=== PATIENT | female | born 1995 | race Caucasian/White ===

== ENCOUNTER 2017-01-03 14:21 | Outpatient (CLI) | payer SELFPAY ==
[~2017-01-03] VITALS: Ht 162.6 cm; Wt 105.0 kg
[2017-01-03 14:47] VITALS: BP 118/59
[2017-01-03] MEDS ORDERED: PRENTAB9 PO (15:03)
[2017-01-03] MEDS ORDERED: IRON65TA PO (15:03)
--- NOTE | 2017-01-03 18:49 | HPE ---
DATE OF ADMISSION: 01/03/2017 REASON FOR VISIT: labor evaluation. HISTORY OF PRESENT ILLNESS: This patient is a 21-year-old 3, para 2, who presents at 35 weeks 4 days estimated gestational age with an estimated date of confinement of 02/04/2017, with a known dichorionic diamniotic twin gestation. Her course has been otherwise unremarkable. She initiated care in the first trimester that has been appropriate throughout. She presents as an unregistered patient that has been seen in [place] by Dr. Wong. She reports throughout the day that she started to experience some cramping. Denies any full blown contractions, vaginal bleeding or leakage of fluid. She reports active movement. PAST MEDICAL HISTORY: None. PAST SURGICAL HISTORY: None. PAST OBSTETRICAL HISTORY: She is a 3, para 2. She has had two term vaginal deliveries. She is proven to 9 pounds 1 ounce. MEDICATIONS: Includes vitamins. ALLERGIES: She has no known drug allergies. SOCIAL HISTORY: She is a former smoker, quit during her . PHYSICAL EXAMINATION: Her vital signs are stable. She is afebrile. She has a category 1 heart rate tracing times two from twin gestation with irritability, no discrete contractions on tocometer. GENERAL APPEARANCE: Well-appearing. No acute distress. LUNGS: Clear to auscultation bilaterally. CARDIOVASCULAR: Heart regular rate and rhythm. ABDOMEN: Gravid, nontender. CERVICAL: She is 3 cm dilated, 75% effaced, -2 station, unchanged from her previous exam one day ago. LABORATORY DATA: Her blood type is A positive. Antibody screen is negative. Rubella is equivocal. Hepatitis surface antigen is negative. HIV is negative. ASSESSMENT: 1. This patient is a 21-year-old 3, para 2 at 35 weeks 4 days with a twin gestation. 2. Reassuring statuses times two. 3. Stable cervical exam, not in active labor. PLAN: 1. The patient was provided with labor precautions as well as kick count instructions. 2. She is instructed to followup with the primary mastic worker, Dr. Wong.
== END 2017-01-03 16:27 | disposition home or self-care (01) ==
LOC: M LDO 14:21
PROVIDERS: ATTEND Obstetrics & Gynecology
DX: O47.03 False labor before 37 completed weeks of gestation, third trimester (principal); O30.043 Twin pregnancy, dichorionic/diamniotic, third trimester; Z3A.35 35 weeks gestation of pregnancy; Z87.891 Personal history of nicotine dependence

== ENCOUNTER → 2017-01-11 | Outpatient (REF) | payer OTHER ==
[~2017-01-11] MED LIST: ACET50TA PO; IBUP-1114 PO; IRON65TA PO; PRENTAB9 PO
== END ==
LOC: M LAB REF 17:28
PROVIDERS: ATTEND Obstetrics & Gynecology
DX: O30.043 Twin pregnancy, dichorionic/diamniotic, third trimester (principal); Z3A.00 Weeks of gestation of pregnancy not specified

== ENCOUNTER 2017-01-18 13:38 | Inpatient (IN) | payer OTHER ==
[~2017-01-18] VITALS: Ht 162.6 cm; Wt 105.0 kg
[~2017-01-18 13:38] MED LIST changes: -ACET50TA PO; -IBUP-1114 PO
[2017-01-18 13:57] VITALS: BP 122/59
[2017-01-18] MEDS ORDERED: LACTATED RINGER'S 1000 ML IV STA (14:41)
[2017-01-18 15:33] LABS: MEAN CORPUSCULAR HEMOGLOBIN 24.6 pg (27.0-33.0); MEAN CORPUSCULAR VOLUME 74.5 fl (80.0-96.0); RED CELL DISTRIBUTION WIDTH 14.6 % (11.5-14.5); WHITE BLOOD COUNT 14.8 K/mm3 (4.0-10.0)
[2017-01-18] MEDS: LR 1,000 ML IV SCH (16:38)
[2017-01-18 17:01] VITALS: BP 118/66
[2017-01-18 18:48] VITALS: BP 102/55
[2017-01-18 19:27] VITALS: BP 114/56
[2017-01-18 20:58] VITALS: BP 118/57
[2017-01-18 21:48] VITALS: BP 110/55
[2017-01-18] MEDS: ceFAZolin SOD 1 GM in D5W MINI-BAG PLUS 50 ML IV SCH (23:44)
[2017-01-19] VITALS (40 sets, daily range): BP systolic 88–131; BP diastolic 50–81
[2017-01-19] MEDS: ceFAZolin SOD 1 GM in D5W MINI-BAG PLUS 50 ML IV SCH ×2 (09:28→15:10)
[2017-01-19] MEDS: LR 1,000 ML IV SCH (09:35)
[2017-01-19] MEDS ORDERED: FENTANYL 2MCG/ML ROPIVACAINE 0.2% IN 0.9% NACL 200ML IVBAG As Ordered ONE (11:25)
[2017-01-19] MEDS ORDERED: diphenhydrAMINE INJ 50MG/ML VIAL (J1200) IV PRN (12:00)
[2017-01-19] MEDS ORDERED: FENTANYL/ROPIVACAINE/NACL BAG 200 ML EPIDURAL SCH (12:00)
[2017-01-19] MEDS ORDERED: NALOXONE INJ 0.4 MG/1 ML VIAL (J2310) IV PRN (12:00)
[2017-01-19] MEDS ORDERED: EPIDURAL/PCA KEYS XX PRN (12:00)
[2017-01-19] MEDS ORDERED: LACTATED RINGER'S 1000 ML IV PRN (12:00)
[2017-01-19] MEDS ORDERED: EPIDURAL COMMENT XX SCH (12:00)
[2017-01-19] MEDS ORDERED: REFRIGERATOR IV KEYS XX PRN (12:00)
[2017-01-19] MEDS ORDERED: ONDANSETRON 4MG/2ML VIAL (J2405) IV PRN ×2 (12:00→16:00)
[2017-01-19] MEDS ORDERED: OXYTOCIN 30 UNITS IN 0.9% NaCl 500ML IV BAG (J2590) As Ordered ONE (14:34)
[2017-01-19] MEDS ORDERED: LR 1,000 ML IV SCH (15:59)
[2017-01-19] MEDS ORDERED: DIBUCAINE 1% OINTMENT 30GM TOP PRN (16:00)
[2017-01-19] MEDS ORDERED: DOCUSATE SODIUM 100 MG CAP PO PRN (16:00)
[2017-01-19] MEDS ORDERED: METHYLERGONOVINE MALEATE 0.2 MG TAB PO PRN (16:00)
[2017-01-19] MEDS ORDERED: PROMETHAZINE 25 MG TAB PO PRN (16:00)
[2017-01-19] MEDS ORDERED: MEASLES,MUMPS,RUBELLA VACCINE INJ (MMR-II) (90707) SC SCH (16:00)
[2017-01-19] MEDS ORDERED: RHOGAM 300 MCG (1500 IU) INJ (J2790) IM SCH (16:00)
[2017-01-19] MEDS ORDERED: OXYTOCIN DRIP 30 UNITS in APPROPRIATE DILUENT 1 EA IV SCH (16:15)
[2017-01-19] MEDS: IBUPROFEN 800 MG TAB PO PRN (20:35)
[2017-01-20] MEDS: ACETAMINOPHEN 500 MG TAB PO PRN ×2 (04:35→16:29)
[2017-01-20 06:30] VITALS: BP 95/65
[2017-01-20] MEDS: PRENATAL VITAMINS CHEWABLE TABLET PO SCH (08:24)
[2017-01-20] MEDS: IBUPROFEN 800 MG TAB PO PRN ×2 (09:18→22:32)
[2017-01-20 18:05] VITALS: BP 130/64
[2017-01-21] MEDS: ACETAMINOPHEN 500 MG TAB PO PRN (02:23)
[2017-01-21 06:06] VITALS: BP 138/93
[2017-01-21] MEDS ORDERED: ACET50TA PO (07:58)
[2017-01-21] MEDS ORDERED: IBUP-1114 PO (07:58)
[2017-01-21] MEDS: PRENATAL VITAMINS CHEWABLE TABLET PO SCH (08:53)
== END 2017-01-21 10:34 | disposition home or self-care (01) | DRG 560 ==
LOC: M LDI 13:38 → M OBS 01-19 18:26
PROVIDERS: ADMIT Obstetrics & Gynecology; ATTEND Obstetrics & Gynecology
PROC: 10E0XZZ Delivery of Products of Conception, External Approach (ICD-10-PCS; principal; 2017-01-19)
DX: O36.8132 Decreased fetal movements, third trimester, fetus 2 (principal); O30.043 Twin pregnancy, dichorionic/diamniotic, third trimester; Z37.2 Twins, both liveborn; Z3A.37 37 weeks gestation of pregnancy; O99.824 Streptococcus B carrier state complicating childbirth; O69.2XX2 Labor and delivery complicated by other cord entanglement, with compression, fetus 2

== ENCOUNTER → 2019-03-19 | Outpatient (REF) | payer OTHER ==
[~2019-03-19] MED LIST changes: +IBUP-1114 PO; +MAPA500T2 PO
== END ==
LOC: M LAB REF 13:24
PROVIDERS: ATTEND Advanced Practice Midwife
DX: Z12.4 Encounter for screening for malignant neoplasm of cervix (principal)

== ENCOUNTER → 2019-06-17 | Outpatient (CLI) | payer OTHER ==
--- NOTE | 2019-06-17 12:57 | REP ---
OB ULTRASOUND: Real-time sonographic evaluation of the gravid uterus is performed. There is a single living intrauterine gestation. Estimated gestational age 19 weeks 4 days, EDC 11/07/2019. Today's measurements indicate appropriate growth. BPD 42 mm = 18 weeks 4 days, 23rd percentile HC 163 mm = 19 weeks 1 day, 34th percentile AC 148 mm = 20 weeks 0 days, 59th percentile Femur length 33 mm = 20 weeks 1 day, 64th percentile HC/AC ratio 1.11 within normal range. Estimated weight 319 grams, 57th percentile. Cervix is closed and measures 5.5 cm in length. heart rate 137 beats per minute. SEEN/GROSSLY UNREMARKABLE Lateral ventricles Yes Posterior fossa Yes Upper lip No Four-chamber heart Yes LVOT No RVOT No Stomach Yes Cord insertion Yes Three vessel cord Yes Kidneys Yes Bladder Yes Spine Yes position: Transverse with the head toward the maternal right side. Placenta: Posterior and grade 0 with no previa or abruption. Amniotic fluid: Within normal limits. Unreviewed
== END ==
LOC: M RAD 09:24
PROVIDERS: ATTEND Advanced Practice Midwife
DX: Z34.82 Encounter for supervision of other normal pregnancy, second trimester (principal)

== ENCOUNTER → 2019-09-08 | Outpatient (REF) | payer OTHER ==
[2019-09-08 15:29] LABS: CHLAMYDIA DNA AMPLIFICATION NEGATIVE (NEGATIVE); GC DNA AMPLIFICATION NEGATIVE (NEGATIVE)
== END ==
LOC: M SFHCWAGY 12:53
PROVIDERS: ATTEND Nurse Practitioner Women's Health
DX: O99.213 Obesity complicating pregnancy, third trimester (principal); Z3A.31 31 weeks gestation of pregnancy

== ENCOUNTER → 2019-09-15 | Outpatient (CLI) | payer OTHER ==
--- NOTE | 2019-09-16 06:43 | REP ---
Clinical: Anatomical evaluation. Comparison: 06/17/2019 . Findings: Examination demonstrates a single live intrauterine in cephalic presentation. motion is identified by technologist. Placenta is noted posterior and grade I I without evidence for placenta previa or abruption. Amniotic fluid volume is normal. Cervix measures 3.0 cm in length and appears closed. No evidence for nuchal cord. Gestational age by LMP 32 weeks 3 days with AMRITA 11/07/2019 . Gestational age by current measurements 31 weeks 6 days with AMRITA 11/11/2019 . FHR equals 134 beats per minute. Estimated weight 1954 grams ( 42nd percentile). Amniotic fluid index: 14.9 cm. Anatomical assessment demonstrates normal structures including cranium, choroid plexus, facial features, four-chamber heart/ventricular outflow tracts, diaphragm, stomach, cord insertion/three-vessel cord, kidneys/bladder, and spine. Impression: single live intrauterine in cephalic presentation demonstrating appropriate interval growth. In conjunction with prior examination anatomical assessment is complete and normal.
== END ==
LOC: M WHC 10:58
PROVIDERS: ATTEND Obstetrics & Gynecology
DX: O09.292 Supervision of pregnancy with other poor reproductive or obstetric history, second trimester (principal)

== ENCOUNTER → 2019-09-28 | Outpatient (REF) | payer OTHER ==
[2019-09-28 11:53] LABS: HEMATOCRIT 38.1 % (36.0-47.0); HEMOGLOBIN 12.6 g/dl (12.0-15.5); MEAN CORPUSCULAR HEMOGLOBIN 28.3 pg (27.0-33.0); MEAN CORPUSCULAR HGB CONC 33.1 g/dl (32.0-36.5); MEAN CORPUSCULAR VOLUME 85.6 fl (80.0-96.0); PLATELET COUNT, AUTOMATED 223 10^3/uL (150-450); RED BLOOD COUNT 4.45 10^6/uL (4.00-5.40); WHITE BLOOD COUNT 8.9 10^3/uL (4.0-10.0)
[2019-09-28 11:58] LABS: ALT/SGPT 17 U/L (12-78); BILIRUBIN,TOTAL 0.2 MG/DL (0.2-1.0); CREATININE FOR GFR 0.46 MG/DL (0.55-1.30); GLOMERULAR FILTRATION RATE > 60.0 (>60); GLUCOSE CHALLENGE TEST 1 HOUR 129 MG/DL (LESS THAN 140); LDH LACTATE DEHYDROGENASE 117 U/L (84-246); URIC ACID 2.9 MG/DL (2.6-6.0)
[2019-09-28 12:18] LABS: RUBELLA IgG QUALITATIVE IMMUNE (IMMUNE)
[2019-09-28 12:19] LABS: HEPATITIS B SURFACE ANTIGEN NEGATIVE (NEGATIVE)
[2019-09-28 12:20] LABS: TOTAL PROTEIN,RANDOM URINE 27.8 MG/DL (0.0-12.0)
[2019-09-28 12:29] LABS: HEMOGLOBIN A1c 5.4 %
[2019-09-28 12:47] LABS: HEPATITIS C VIRUS ABY INDEX 0.2 INDEX (<0.8); HIV 1&2 SCREEN CENTAUR NEGATIVE (NEGATIVE)
[2019-09-28 14:34] LABS: CHLAMYDIA DNA AMPLIFICATION NEGATIVE (NEGATIVE); GC DNA AMPLIFICATION NEGATIVE (NEGATIVE)
== END ==
LOC: M PLALAB 09:24
PROVIDERS: ATTEND Nurse Practitioner Women's Health
DX: Z3A.31 31 weeks gestation of pregnancy (principal); O99.213 Obesity complicating pregnancy, third trimester; O09.293 Supervision of pregnancy with other poor reproductive or obstetric history, third trimester

== ENCOUNTER → 2019-10-09 | Outpatient (REF) | payer OTHER | LOC: M PLALAB 10:08 | PROVIDERS: ATTEND Obstetrics & Gynecology | DX: O09.293 Supervision of pregnancy with other poor reproductive or obstetric history, third trimester (principal); Z3A.00 Weeks of gestation of pregnancy not specified ==

== ENCOUNTER 2019-10-17 12:13 | Outpatient (CLI) | payer OTHER ==
[~2019-10-17] VITALS: Ht 162.6 cm; Wt 117.8 kg
[2019-10-17 12:28] VITALS: BP 110/75
--- NOTE | 2019-10-17 14:00 | IPN ---
DATE: 10/17/2019 24-year-old female 37 weeks gestation who presents with lower pelvic cramping every 20 minutes. She feels hot and flushed. Pain is increased in intensity. OBJECTIVE: Blood pressure 125/75, pulse 84, afebrile. No apparent distress. Head and neck exam normal. Lungs clear. Heart regular. Abdomen nontender, gravid. heart tones category 1, contractions rare, irregular. Extremities nontender. Sterile vaginal exam 1 cm, 70%, -2, posterior, moderate, vertex. ASSESSMENT: 24-year-old at 37 weeks gestation with contractions, not in labor. PLAN: Patient evaluated in triage for an extended time. Testing reassuring. The patient will be sent home. Followup in the office as scheduled.
[2019-10-17 14:34] VITALS: BP 132/70
== END 2019-10-17 14:42 | disposition home or self-care (01) ==
LOC: M LDO 12:13
PROVIDERS: ATTEND Specialist
DX: O47.1 False labor at or after 37 completed weeks of gestation (principal); Z3A.37 37 weeks gestation of pregnancy; Z88.0 Allergy status to penicillin

== ENCOUNTER 2019-10-31 18:34 | Inpatient (IN) | payer OTHER ==
[~2019-10-31] VITALS: Ht 162.6 cm; Wt 119.8 kg
[2019-10-31] VITALS (9 sets, daily range): BP systolic 99–133; BP diastolic 53–77
[2019-10-31 19:55] LABS: HEMATOCRIT 37.7 % (36.0-47.0); HEMOGLOBIN 12.3 g/dl (12.0-15.5); MEAN CORPUSCULAR HEMOGLOBIN 26.9 pg (27.0-33.0); MEAN CORPUSCULAR HGB CONC 32.6 g/dl (32.0-36.5); MEAN CORPUSCULAR VOLUME 82.3 fl (80.0-96.0); PLATELET COUNT, AUTOMATED 253 10^3/uL (150-450); RED BLOOD COUNT 4.58 10^6/uL (4.00-5.40)
[2019-10-31] MEDS ORDERED: LR 1,000 ML IV SCH (20:03)
[2019-10-31] MEDS ORDERED: OXYTOCIN DRIP 30 UNITS in IV 1 EA IV SCH (20:15)
--- NOTE | 2019-10-31 20:17 | HPEPDOC ---
Obstetrical History & Physical General Date of Admission Oct 31, 2019 at 18:34 History of Present Illness 24-year-old 5, para 4 at 39 weeks 0 days estimated gestational age by first trimester ultrasound, presents for induction labor. course is been unremarkable. She initiated care first trimesters been appropriate throughout Chief Complaint: Induction of labor Information Provided By: Patient Age: 24 : 5 Term: 4 Abortions: 1 Livin Care Care: Good Care Dating Final EDC: November 07, 2019 Final EDC by: 1st trimester (US) Past Medical History Past Obstetrical History : Past Obstetrical History: Multigravida Type of Delivery: Spontaneous Vaginal Del. 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 BREAST: . ABDOMEN: Gravid and non-tender to touch. FETUS: Is vertex (VTX) by sterile vaginal examination (SVE), fetus is vertex (VTX) by Phi. HEART RATE: Regular rate and rhythm. LUNGS: Clear to auscultation (CTA). Vital Signs/I&O Vital Signs Date Time Temp Pulse Resp B/P (MAP) Pulse Ox O2 Delivery O2 Flow Rate FiO2 10/31/19 19:01 116 16 133/59 (83) Laboratory Data 24[facility] Laboratory Tests 2 10/31/19 18:40: Serology Scanned Report Hepatitis B Testing 10/31/19 19:35: Nucleated Red Blood Cells % (auto) 0.0 CBC/BMP Laboratory Tests 10/31/19 19:35 Pertinent Laboratoy Data Blood Type: A+ RBC Antibody Screen: Negative HIV: Negative Hepatitis B: Negative Hepatitis C: Negative Rapid Plasma Reagin: Nonreactive Rubella: Immune Chlamydia/Gonorrhea: Negative Group B Streptococcus: Negative Vaginal Examination Dilation: 2cm Effacement: 50% Station: -2 Cervical Consistency: Soft Cervical Position: Anterior Presentation: Cephalic presentation Assessment Heart Rate (FHR): 120 Variability: Moderate Accelerations: Positive Tocometer Contractions: Yes Frequency: irregular Assessment/Plan Assessment 24-year-old 5, para 4 at 39 weeks 0 days estimate gestational age by first trimester ultrasound, here for social induction labor. Reassuring status Plan Admit and orient. Wirer Helper and consent. Diet: Regular. Group B Streptococcus (GBS) negative. Labs and intravenous (IV) per unit protocol. Counseled on Pitocin and induction of labor (IOL). Anticipate normal spontaneous delivery (). C-S as appropriate. Labor and Delivery Counseling Patient's been thoroughly counseled regards, induction labor. Discussed medication as well as procedures performed labor and delivery. She has also been verbally consented for emergency surgery, blood products anesthesia desires proceed with induction of labor. Will initiate her induction labor with Pitocin. SUDHIR BAILEY MD. Oct 31, 2019 20:17
[2019-10-31] MEDS ORDERED: PROMETHAZINE INJ 25 MG/ML VIAL (J2550) IV ONE (22:30)
[2019-10-31] MEDS ORDERED: BUTORPHANOL 2 MG/ML INJ (J0595) IV ONE (22:30)
[2019-11-01] VITALS (29 sets, daily range): BP systolic 103–130; BP diastolic 49–89
[2019-11-01] MEDS ORDERED: FENTANYL 2MCG/ML ROPIVACAINE 0.2% IN 0.9% NACL 100ML IVBAG As Ordered ONE (02:42)
[2019-11-01] MEDS ORDERED: EPIDURAL COMMENT XX SCH (04:00)
[2019-11-01] MEDS ORDERED: REFRIGERATOR IV KEYS XX PRN (04:00)
[2019-11-01] MEDS ORDERED: EPIDURAL/PCA KEYS XX PRN (04:00)
[2019-11-01] MEDS ORDERED: FENTANYL/ROPIVACAINE/NACL BAG 100 ML EPIDURAL SCH (04:00)
[2019-11-01] MEDS ORDERED: LACTATED RINGER'S 1000 ML IV PRN (04:00)
[2019-11-01] MEDS ORDERED: ONDANSETRON 4MG/2ML VIAL IV PRN (04:00)
[2019-11-01] MEDS ORDERED: ePHEDrine SULFATE 25 MG/5 ML(5MG/ML) SYRINGE IV PRN (04:00)
[2019-11-01] MEDS ORDERED: NALOXONE INJ 0.4MG/1ML VIAL (J2310 PER 1MG) IV PRN (04:00)
[2019-11-01] MEDS ORDERED: diphenhydrAMINE 50MG/ML VIAL (J1200) IV PRN (04:00)
[2019-11-01] MEDS ORDERED: OXYTOCIN DRIP 30 UNITS in IV 1 EA IV SCH (05:26)
--- NOTE | 2019-11-01 05:29 | DNPDOC ---
[facility] Delivery Note Delivery Note DATE OF DELIVERY: 11/01/2019 TIME OF : 0510 GENDER: Female. APGARS: 8 and 9. WEIGHT:, 3560 grams or 7 pounds 14 ounces. LACERATIONS: None ANESTHESIA: Epidural. ESTIMATED BLOOD LOSS: 300ml COUNTS: 5 laparotomy sponges accounted for prior to after delivery. DELIVERY NOTE: On 11/01/2019 at 0510. This patient, 7, now para 5 had a spontaneous vaginal delivery of viable female infant, Apgars, 8 and 9. Weight w as 3560 g or 7 lbs. 14 oz. Head was delivered [occiput anterior (OA). Nuchal cord was manually reduced followed by delivery of the shoulders and corpus. was handed to mom with a good cry. Cord was clamped times two and was cut by the father of baby under my direction. Placenta was then drained and delivered grossly intact. A premixed bag of 500 mL of normal saline with 30 units of Pitocin was then bolused along with uterine massage until the uterus was firm. On inspection, cervix, vagina, perineum was grossly intact and hemostatic. Mom and baby in recovery on stable condition. The couple decided to maintain the daughter, SUDHIR Dotson MD. Nov 01, 2019 05:29
[2019-11-01] MEDS ORDERED: ACETAMINOPHEN 500 MG TAB PO PRN (05:30)
[2019-11-01] MEDS ORDERED: MOM 30ML SUSPENSION UDC PO PRN (05:30)
[2019-11-01] MEDS ORDERED: DOCUSATE SODIUM 100 MG CAP PO PRN (05:30)
[2019-11-01] MEDS ORDERED: METHYLERGONOVINE MALEATE 0.2 MG TAB PO PRN (05:30)
[2019-11-01] MEDS ORDERED: DIBUCAINE 1% OINTMENT 30GM TOP PRN (05:30)
[2019-11-01] MEDS ORDERED: MEASLES,MUMPS,RUBELLA VACCINE INJ (MMR-II) (90707) SC SCH (05:30)
[2019-11-01] MEDS ORDERED: IBUPROFEN 600 MG TAB PO PRN (05:30)
[2019-11-01] MEDS ORDERED: ANUSOL HC CREAM 30GM TOP PRN (05:30)
[2019-11-01] MEDS ORDERED: ACETAMINOPHEN TAB 650MG DOSE (2X325MG) PO PRN (05:30)
[2019-11-01] MEDS ORDERED: RHOGAM 300 MCG (1500 IU) INJ (J2790) IM SCH (05:30)
[2019-11-01] MEDS: PRENATAL VITAMINS CHEWABLE TABLET PO SCH (09:00)
[2019-11-01] MEDS: IBUPROFEN 800 MG TAB PO PRN ×2 (13:16→22:18)
[2019-11-02 06:00] VITALS: BP 114/55
[2019-11-02] MEDS: PRENATAL VITAMINS CHEWABLE TABLET PO SCH (07:59)
[2019-11-02] MEDS ORDERED: IBUP80TA PO (11:54)
[2019-11-02] MEDS ORDERED: ACET-683 PO (11:54)
== END 2019-11-02 12:30 | disposition home or self-care (01) | DRG 560 ==
LOC: M LDI 18:34 → M OBS 11-01 09:36
PROVIDERS: ADMIT Obstetrics & Gynecology; ATTEND Obstetrics & Gynecology
PROC: 3E033VJ Introduction of Other Hormone into Peripheral Vein, Percutaneous Approach (ICD-10-PCS; 2019-10-31)
PROC: 10E0XZZ Delivery of Products of Conception, External Approach (ICD-10-PCS; principal; 2019-11-01)
DX: O69.81X0 Labor and delivery complicated by cord around neck, without compression, not applicable or unspecified (principal); Z37.0 Single live birth; Z3A.39 39 weeks gestation of pregnancy

== ENCOUNTER → 2021-11-17 | Outpatient (CLI) | payer OTHER ==
[~2021-11-17] MED LIST changes: +ACET-683 PO; +IBUP80TA PO
== END ==
LOC: M WHC 07:41
PROVIDERS: ATTEND Obstetrics & Gynecology
DX: Z36.3 Encounter for antenatal screening for malformations (principal); Z3A.23 23 weeks gestation of pregnancy

== ENCOUNTER → 2022-01-12 | Outpatient (CLI) | payer OTHER | LOC: M WHC 15:21 | PROVIDERS: ATTEND Obstetrics & Gynecology | DX: Z36.2 Encounter for other antenatal screening follow-up (principal); Z3A.32 32 weeks gestation of pregnancy ==

== ENCOUNTER → 2022-01-15 | Outpatient (CLI) | payer OTHER ==
[2022-01-15 18:30] LABS: HEMATOCRIT 36.7 % (36.0-47.0); MEAN CORPUSCULAR HGB CONC 32.7 g/dl (32.0-36.5); MEAN CORPUSCULAR VOLUME 85.7 fl (80.0-96.0); PLATELET COUNT, AUTOMATED 261 10^3/uL (150-450); RED BLOOD COUNT 4.28 10^6/uL (4.00-5.40); WHITE BLOOD COUNT 12.3 10^3/uL (4.0-10.0)
[2022-01-15 21:11] LABS: HEPATITIS C VIRUS ABY INDEX 0.1 INDEX (<0.8); HIV 1&2 SCREEN CENTAUR NEGATIVE (NEGATIVE)
== END ==
LOC: M PLALAB 13:55
PROVIDERS: ATTEND Obstetrics & Gynecology
DX: Z34.91 Encounter for supervision of normal pregnancy, unspecified, first trimester (principal)

== ENCOUNTER → 2022-01-15 | Outpatient (CLI) | payer OTHER | LOC: M PLALAB 13:53 | PROVIDERS: ATTEND Obstetrics & Gynecology | DX: Z34.90 Encounter for supervision of normal pregnancy, unspecified, unspecified trimester (principal); Z3A.29 29 weeks gestation of pregnancy ==

== ENCOUNTER → 2022-02-06 | Outpatient (REF) | payer OTHER | LOC: M SFHCWAGY 10:52 | PROVIDERS: ATTEND Obstetrics & Gynecology | DX: Z34.83 Encounter for supervision of other normal pregnancy, third trimester (principal) ==

== ENCOUNTER 2022-02-26 07:25 | Inpatient (IN) | payer OTHER ==
[~2022-02-26] VITALS: Ht 162.6 cm; Wt 125.7 kg
[2022-02-26] VITALS (38 sets, daily range): BP systolic 127–169; BP diastolic 63–98
[2022-02-26] MEDS ORDERED: HOME MED LIST COMPLETE! XX SCH (08:05)
[2022-02-26] MEDS ORDERED: PRENTAB9 PO (08:05)
[2022-02-26] MEDS ORDERED: CARBOPROST TROMETHAMINE 250 MCG/ML AMP IM PRN (08:55)
[2022-02-26] MEDS ORDERED: METHYLERGONOVINE MALEATE 0.2 MG/ML VIAL (J2210) IM PRN (08:55)
[2022-02-26] MEDS ORDERED: OXYTOCIN INJ 10 UNITS/ML VIAL (J2590) IM PRN (08:55)
[2022-02-26] MEDS ORDERED: TRANEXAMIC ACID INJection 1,000 MG in NS 100 ML IV PRN (08:55)
[2022-02-26] MEDS ORDERED: OXYTOCIN DRIP 30 UNITS in IV 1 EA IV PRN (08:55)
[2022-02-26] MEDS ORDERED: LIDOCAINE 1% MDV 20ML VIAL INFIL PRN (08:55)
[2022-02-26 09:51] LABS: HEMATOCRIT 36.7 % (36.0-47.0); HEMOGLOBIN 12.2 g/dl (12.0-15.5); MEAN CORPUSCULAR HEMOGLOBIN 27.8 pg (27.0-33.0); MEAN CORPUSCULAR HGB CONC 33.2 g/dl (32.0-36.5); MEAN CORPUSCULAR VOLUME 83.6 fl (80.0-96.0); PLATELET COUNT, AUTOMATED 284 10^3/uL (150-450); RED BLOOD COUNT 4.39 10^6/uL (4.00-5.40); WHITE BLOOD COUNT 11.8 10^3/uL (4.0-10.0)
[2022-02-26 10:22] LABS: RSV AMPLIFICATION NEGATIVE (NEGATIVE)
[2022-02-26] MEDS ORDERED: miSOPROStol 50MCG 1/2 TABLET PO ONE (11:00)
[2022-02-26] MEDS ORDERED: OXYTOCIN DRIP 30 UNITS in IV 1 EA IV SCH (14:40)
[2022-02-26] MEDS: LR 1,000 ML IV SCH ×2 (15:00→18:19)
[2022-02-26] MEDS ORDERED: ONDANSETRON 4MG 2ML VIAL IV PRN (16:20)
[2022-02-26] MEDS ORDERED: NALOXONE INJ 0.4MG/1ML VIAL (J2310 PER 1MG) IV PRN (16:20)
[2022-02-26] MEDS ORDERED: EPIDURAL/PCA KEYS XX PRN (16:20)
[2022-02-26] MEDS ORDERED: FENTANYL/ROPIVACAINE/NACL BAG 100 ML EPIDURAL SCH (16:20)
[2022-02-26] MEDS ORDERED: LR 500 ML IV PRN (16:20)
[2022-02-26] MEDS ORDERED: diphenhydrAMINE 50MG/ML VIAL (J1200) IV PRN (16:20)
[2022-02-26] MEDS ORDERED: ePHEDrine SULFATE 25 MG/5 ML(5MG/ML) SYRINGE IVP PRN (16:20)
[2022-02-26 18:21] LABS: ALT/SGPT 16 U/L (12-78); BILIRUBIN,TOTAL 0.1 MG/DL (0.2-1.0); CREATININE FOR GFR 0.36 MG/DL (0.55-1.30); GLOMERULAR FILTRATION RATE > 60.0 (>60); LDH LACTATE DEHYDROGENASE 159 U/L (84-246); URIC ACID 3.2 MG/DL (2.6-6.0)
[2022-02-26 19:00] LABS: TOTAL PROTEIN,RANDOM URINE 31.7 MG/DL (0.0-12.0)
[2022-02-26 20:40] LABS: GC DNA AMPLIFICATION NEGATIVE (NEGATIVE)
[2022-02-26] MEDS ORDERED: IBUPROFEN 800 MG TAB PO PRN (23:55)
[2022-02-26] MEDS ORDERED: DIBUCAINE 1% OINTMENT 30GM TOP PRN (23:55)
[2022-02-26] MEDS ORDERED: MOM 30ML SUSPENSION UDC PO PRN (23:55)
[2022-02-26] MEDS ORDERED: ANUSOL HC CREAM 30GM TOP PRN (23:55)
[2022-02-26] MEDS ORDERED: ACETAMINOPHEN 500 MG TAB PO PRN (23:55)
[2022-02-26] MEDS ORDERED: IBUPROFEN 600MG TAB PO PRN (23:55)
[2022-02-26] MEDS ORDERED: DOCUSATE SODIUM 100MG CAPSULE PO PRN (23:55)
[2022-02-26] MEDS ORDERED: ACETAMINOPHEN TAB 650MG DOSE (2X325MG) PO PRN (23:55)
[2022-02-26] MEDS ORDERED: RHOGAM 300 MCG (1500 IU) INJ (J2790) IM SCH (23:55)
[2022-02-27 00:09] VITALS: BP 133/69
[2022-02-27 01:45] VITALS: BP 113/53
[2022-02-27 06:00] VITALS: BP 119/60
[2022-02-27] MEDS ORDERED: PRENATAL VITAMINS CHEWABLE TABLET PO SCH (09:00)
[2022-02-27] MEDS ORDERED: COLA100C5 PO (14:56)
[2022-02-27] MEDS ORDERED: IBUP-1022 PO (14:56)
[2022-02-27] MEDS ORDERED: ACET-683 PO (14:56)
[2022-02-28] MEDS ORDERED: MEASLES,MUMPS,RUBELLA VACCINE INJ (MMR-II) (90707) SC.IMMUN ONE (09:00)
== END 2022-02-27 16:53 | disposition home or self-care (01) | DRG 560 ==
LOC: M LDI 07:25 → M OBS 02-27 01:33
PROVIDERS: ADMIT Advanced Practice Midwife; ATTEND Advanced Practice Midwife
PROC: 10E0XZZ Delivery of Products of Conception, External Approach (ICD-10-PCS; principal; 2022-02-26)
PROC: 0HQ9XZZ Repair Perineum Skin, External Approach (ICD-10-PCS; 2022-02-26)
PROC: 3E0P7GC Introduction of Other Therapeutic Substance into Female Reproductive, Via Natural or Artificial Opening (ICD-10-PCS; 2022-02-26)
DX: O13.4 Gestational [pregnancy-induced] hypertension without significant proteinuria, complicating childbirth (principal); Z3A.38 38 weeks gestation of pregnancy; O99.214 Obesity complicating childbirth; E66.01 Morbid (severe) obesity due to excess calories; O69.1XX0 Labor and delivery complicated by cord around neck, with compression, not applicable or unspecified; O70.0 First degree perineal laceration during delivery; Z37.0 Single live birth

== ENCOUNTER → 2022-04-22 | Outpatient (CLI) | payer OTHER ==
[~2022-04-22] MED LIST changes: +COLA100C5 PO; +IBUP-1022 PO
== END ==
LOC: M LABSMTC 09:10
PROVIDERS: ATTEND Anesthesiology
DX: Z01.818 Encounter for other preprocedural examination (principal); Z11.52 Encounter for screening for COVID-19

== ENCOUNTER 2022-04-27 13:09 | Day surgery (SDC) | payer OTHER ==
[~2022-04-27] VITALS: Ht 162.6 cm; Wt 118.4 kg
[2022-04-27] MEDS ORDERED: LR 1,000 ML IV SCH (13:35)
[2022-04-27 13:58] LABS: HEMATOCRIT 41.9 % (36.0-47.0); HEMOGLOBIN 13.7 g/dl (12.0-15.5); MEAN CORPUSCULAR HGB CONC 32.7 g/dl (32.0-36.5); MEAN CORPUSCULAR VOLUME 82.5 fl (80.0-96.0); PLATELET COUNT, AUTOMATED 278 10^3/uL (150-450); RED BLOOD COUNT 5.08 10^6/uL (4.00-5.40); WHITE BLOOD COUNT 10.2 10^3/uL (4.0-10.0)
[2022-04-27] MEDS ORDERED: BUPIVACAINE HCL 0.25% 30ML VIAL As Ordered ONE (15:26)
[2022-04-27] MEDS ORDERED: fentaNYL 250 MCG/5 ML INJECTION As Ordered ONE (16:08)
[2022-04-27] MEDS ORDERED: propofoL 200 MG/20 ML VIAL As Ordered ONE (16:08)
[2022-04-27] MEDS ORDERED: dexameTHASONE 4 MG/ML 1ML VIAL (J1100 PER 1MG) As Ordered ONE (16:08)
[2022-04-27] MEDS ORDERED: SUGAMMADEX SODIUM 500 MG/5 ML VIAL (BRIDION) As Ordered ONE (16:08)
[2022-04-27] MEDS ORDERED: DESFLURANE 240 ML INHALANT As Ordered ONE (16:08)
[2022-04-27] MEDS ORDERED: LIDOCAINE 2% 100MG/5ML SDV (FOR ANES.) As Ordered ONE (16:08)
[2022-04-27] MEDS ORDERED: ONDANSETRON 4MG 2ML VIAL As Ordered ONE ×2 (16:08→16:51)
[2022-04-27] MEDS ORDERED: MIDAZOLAM INJ 2MG/2ML VIAL (J2250 PER 1MG) As Ordered ONE (16:08)
[2022-04-27] MEDS ORDERED: ROCURONIUM BROMIDE 50 MG/5 ML VIAL As Ordered ONE (16:08)
[2022-04-27] MEDS ORDERED: KETOROLAC 60MG 2ML VIAL As Ordered ONE (16:08)
[2022-04-27] MEDS ORDERED: METOCLOPRAMIDE INJ 10MG/2ML VIAL (J2765 PER 1) As Ordered ONE (16:08)
[2022-04-27] MEDS ORDERED: ACETAMINOPHEN 1000MG 100ML IV BTL (OFIRMEV) (J0131 PER 10MG) As Ordered ONE (16:10)
[2022-04-27] MEDS ORDERED: ONDANSETRON 4MG 2ML VIAL IV PRN (17:00)
[2022-04-27] MEDS ORDERED: fentaNYL 100 MCG/2 ML INJECTION IV PRN (17:00)
[2022-04-27] MEDS ORDERED: PROMETHAZINE 25MG/ML 1ML VIAL IV PRN (17:20)
[2022-04-27] MEDS: oxyCODONE 5MG TAB PO PRN ×2 (17:25→17:59)
[2022-04-27] MEDS ORDERED: KETOROLAC 30 MG/ML 1ML VIAL IV PRN (17:30)
[2022-04-27] MEDS ORDERED: PERCOCET 5MG/325MG TAB PO PRN (17:30)
[2022-04-27 18:55] VITALS: BP 123/59
== END 2022-04-27 18:59 | disposition home or self-care (01) ==
LOC: M SDC 13:09
PROVIDERS: ATTEND Obstetrics & Gynecology
DX: Z30.2 Encounter for sterilization (principal); Z88.0 Allergy status to penicillin
CPT/HCPCS: 36415; 58661; 81025; 85027; 86850; 86900; 86901; 88302; J0131; J1100; J1885; J2250; J2405; J2550; J2765; J3010